=== PATIENT | male | born 1965 | race Two or more races ===

== ENCOUNTER 2019-04-27 07:07 | Day surgery (SDC) | payer OTHER | END 2019-04-27 12:55 | disposition home or self-care (01) | LOC: AMB-ENDOS 07:07 | DX: D12.5 Benign neoplasm of sigmoid colon (principal); K57.30 Diverticulosis of large intestine without perforation or abscess without bleeding ==

== ENCOUNTER 2021-02-06 10:09 | Day surgery (SDC) | payer OTHER | END 2021-02-06 15:40 | disposition home or self-care (01) | LOC: AMB-ENDOS 10:09 | PROVIDERS: ATTEND Surgery | DX: K62.89 Other specified diseases of anus and rectum (principal) ==